=== PATIENT | female | born 1985 | race African-American/Black ===

== ENCOUNTER 2021-04-16 13:23 | Observation (INO) ==
[2021-04-16] MEDS ORDERED: LACTATED RINGERS 1,000 ML IV SCH (13:45)
[2021-04-16] MEDS: ONDANSETRON 4 MG/2 ML VIAL IV SCH ×2 (14:06→19:58)
[2021-04-16 14:16] LABS: Basophils % 0.4 % (0.0-0.8); Eosinophils % 0.1 % (0.00-10.9); Immature Granulocytes % 0.3 %; Immature Granulocytes Absolute 0.02 #; Lymphocytes # 1.4 10*3/uL (1.4-4.0); Lymphocytes % 21.3 % (21.3-54.2); Mean Corpuscular HGB Conc 31.3 GM/DL (32-36); Mean Corpuscular Volume 74.8 FL (87-102); Mean Platelet Volume 10.1 FL (9.6-12.0); Monocytes % 9.3 % (1.7-12.7); Neutrophils % 68.6 % (38.7-73.9); Platelet Count 418 T/CUMM (130-400); Red Blood Count 4.28 MC/CUMM (3.8-5.5); Red Cell Distribution Width 15.9 % (9.3-17.3); White Blood Count 6.7 T/CUMM (4-12)
[2021-04-16 14:37] LABS: Bilirubin,Total 0.9 MG/DL (0.20-1.00); Calcium 9.4 MG/DL (8.5-10.1); Potassium 3.1 MMOL/L (3.5-5.1); Total Protein 8.3 G/DL (6.4-8.2)
[2021-04-16] MEDS ORDERED: THIAMINE INJ 100 MG, FOLIC ACID INJ 1 MG, MULTIVITAMIN INJ 10 ML in SODIUM CHLORIDE 0.9... IV SCH (14:47)
[2021-04-16] MEDS ORDERED: POTASSIUM CHLORIDE 20 MEQ TABLET PO PRN (16:58)
[2021-04-16] MEDS ORDERED: ACETAMINOPHEN 325 MG TABLET PO PRN (16:58)
[2021-04-16 17:16] LABS: Bilirubin,Urine Small mg/dL (Negative); Blood, Urine Negative (Negative); Glucose,Urine (UA) 50 mg/dL (Negative); Ketones,Urine 20 mg/dL (Negative); Mucus,Urine Many /LPF (Occasional); Nitrite,Urine Negative (Negative); Protein,Urine 100 MG/DL; Urine Appearance CLOUDY (Clear); Urine Color Amber (Yellow); Urine Specific Gravity 1.028 (1.001-1.035)
[2021-04-17] MEDS: ONDANSETRON 4 MG/2 ML VIAL IV SCH ×3 (02:16→15:27)
[2021-04-17 06:20] LABS: Albumin 2.2 G/DL (3.4-5.0); Bilirubin,Total 0.7 MG/DL (0.20-1.00); Calcium 8.8 MG/DL (8.5-10.1); Osmolality,Calculated 271.7 MOS/KG (273-304); Total Protein 6.3 G/DL (6.4-8.2)
[2021-04-17] MEDS ORDERED: POTASSIUM CHLORIDE INJ 20 MEQ in LACTATED RINGERS 1,000 ML IV SCH (07:30)
[2021-04-17 13:42] VITALS: BP 98/54
[2021-04-17] MEDS ORDERED: THIAMINE INJ 100 MG, FOLIC ACID INJ 1 MG, MULTIVITAMIN INJ 10 ML in SODIUM CHLORIDE 0.9... IV SCH (14:00)
== END 2021-04-17 16:20 | disposition home or self-care (01) ==
LOC: N.OB 13:23 → INTOOBSV 13:58
PROVIDERS: ADMIT Obstetrics & Gynecology; ATTEND Obstetrics & Gynecology

== ENCOUNTER 2021-05-06 19:24 | Inpatient (IN) ==
[2021-05-06] MEDS ORDERED: PANTOPRAZOLE 40 MG VIAL IV STA (19:56)
[2021-05-06 20:37] LABS: Basophils % 0.3 % (0.0-0.8); Eosinophils # 0.1 10*3/uL (0.0-0.87); Hematocrit 28.6 VOL% (35.7-47.0); Hemoglobin 8.6 GM/DL (12.0-16.0); Immature Granulocytes % 0.7 %; Immature Granulocytes Absolute 0.05 #; Lymphocytes # 1.3 10*3/uL (1.4-4.0); Lymphocytes % 18.1 % (21.3-54.2); Mean Corpuscular HGB Conc 30.1 GM/DL (32-36); Mean Corpuscular Volume 78.1 FL (87-102); Mean Platelet Volume 11.4 FL (9.6-12.0); Monocytes % 6.3 % (1.7-12.7); Neutrophils % 73.6 % (38.7-73.9); Platelet Count 221 T/CUMM (130-400); Red Blood Count 3.66 MC/CUMM (3.8-5.5); Red Cell Distribution Width 17.1 % (9.3-17.3)
[2021-05-06 20:54] LABS: Albumin 2.7 G/DL (3.4-5.0); Bilirubin,Total 0.4 MG/DL (0.20-1.00); Calcium 9.1 MG/DL (8.5-10.1); Osmolality,Calculated 265.2 MOS/KG (273-304); Total Protein 7.8 G/DL (6.4-8.2)
[2021-05-06] MEDS ORDERED: SODIUM CHLORIDE 0.9% 1,000 ML IV STA (21:23)
[2021-05-06 21:27] LABS: Bilirubin,Urine Negative (Negative); Blood, Urine Negative (Negative); Glucose,Urine (UA) Negative (Negative); Ketones,Urine 20 mg/dL (Negative); Mucus,Urine Many /LPF (Occasional); Nitrite,Urine Negative (Negative); Protein,Urine 100 MG/DL; RBC,Urine 3 /HPF (0-4); Squamous Epithelial Cell,Urine Few /HPF (0-10); Urine Appearance Slightly Hazy (Clear); Urine Color Yellow (Yellow); Urine Specific Gravity 1.026 (1.001-1.035)
[2021-05-06] MEDS ORDERED: PIPERACILLIN/TAZOBACTAM 3,375 MG in SODIUM CHLORIDE 0.9% 100 ML IV STA (22:17)
[2021-05-06] MEDS ORDERED: ONDANSETRON 4 MG/2 ML VIAL IM STA (22:30)
[2021-05-06] MEDS ORDERED: ONDANSETRON 4 MG/2 ML VIAL ONE (22:31)
[2021-05-06] MEDS: SODIUM CHLORIDE 0.9% 1,000 ML IV SCH (22:47)
[2021-05-06] MEDS ORDERED: PROMETHAZINE 25 MG/1 ML VIAL IM PRN (23:57)
[2021-05-07] MEDS ORDERED: MORPHINE 2 MG/1 ML SYRINGE IV PRN (00:12)
[2021-05-07] MEDS: MORPHINE 2 MG/1 ML SYRINGE IV PRN ×3 (00:27→09:40)
[2021-05-07] MEDS: PIPERACILLIN/TAZOBACTAM 3,375 MG in SODIUM CHLORIDE 0.9% 100 ML IV SCH ×3 (06:36→21:04)
[2021-05-07 08:08] LABS: Basophils % 0.2 % (0.0-0.8); Hematocrit 26.5 VOL% (35.7-47.0); Hemoglobin 7.9 GM/DL (12.0-16.0); Immature Granulocytes % 0.3 %; Immature Granulocytes Absolute 0.03 #; Lymphocytes # 1.2 10*3/uL (1.4-4.0); Mean Corpuscular HGB Conc 29.8 GM/DL (32-36); Mean Corpuscular Volume 78.2 FL (87-102); Mean Platelet Volume 10.5 FL (9.6-12.0); Monocytes % 5.1 % (1.7-12.7); Neutrophils % 80.4 % (38.7-73.9); Platelet Count 354 T/CUMM (130-400); Red Blood Count 3.39 MC/CUMM (3.8-5.5); Red Cell Distribution Width 16.9 % (9.3-17.3); White Blood Count 8.9 T/CUMM (4-12)
[2021-05-07 08:50] LABS: Alanine Aminotransferase 18 U/L (13-56); Albumin 2.3 G/DL (3.4-5.0); Alkaline Phosphatase 87 U/L (45-117); Aspartate Amino Transferase 24 U/L (0-37); Bilirubin,Total < 0.39 MG/DL (0.20-1.00); Blood Urea Nitrogen 6 MG/DL (7-18); Calcium 8.7 MG/DL (8.5-10.1); Carbon Dioxide 21 MMOL/L (21-32); Estimated Glom Filtration Rate 154 ML/MIN; Glucose 87 MG/DL (74-106); Potassium 3.8 MMOL/L (3.5-5.1); Sodium 136 MMOL/L (136-145); Total Protein 6.7 G/DL (6.4-8.2)
[2021-05-07] MEDS: PANTOPRAZOLE 40 MG VIAL IV SCH (09:41)
[2021-05-07] MEDS: SODIUM CHLORIDE 0.9% 1,000 ML IV SCH ×2 (10:49)
[2021-05-07] MEDS: oxyCODONE/ACETAMINOPHEN 5-325 MG TABLET PO PRN ×2 (12:45→21:04)
[2021-05-07] MEDS: HYDROmorphone 2 MG/1 ML VIAL IV PRN (14:57)
[2021-05-08] MEDS: SODIUM CHLORIDE 0.9% 1,000 ML IV SCH ×4 (01:03→23:01)
[2021-05-08 06:35] LABS: Basophils % 0.5 % (0.0-0.8); Eosinophils # 0.1 10*3/uL (0.0-0.87); Eosinophils % 1.2 % (0.00-10.9); Hematocrit 25.2 VOL% (35.7-47.0); Hemoglobin 7.5 GM/DL (12.0-16.0); Immature Granulocytes % 0.5 %; Immature Granulocytes Absolute 0.04 #; Lymphocytes # 1.6 10*3/uL (1.4-4.0); Lymphocytes % 21.1 % (21.3-54.2); Mean Corpuscular HGB Conc 29.8 GM/DL (32-36); Mean Corpuscular Volume 78.5 FL (87-102); Mean Platelet Volume 10.5 FL (9.6-12.0); Monocytes % 7.8 % (1.7-12.7); Neutrophils % 68.9 % (38.7-73.9); Platelet Count 330 T/CUMM (130-400); Red Blood Count 3.21 MC/CUMM (3.8-5.5); Red Cell Distribution Width 16.9 % (9.3-17.3); White Blood Count 7.6 T/CUMM (4-12)
[2021-05-08 06:53] LABS: Alanine Aminotransferase 16 U/L (13-56); Albumin 2.1 G/DL (3.4-5.0); Alkaline Phosphatase 78 U/L (45-117); Aspartate Amino Transferase 15 U/L (0-37); Bilirubin,Total < 0.39 MG/DL (0.20-1.00); Blood Urea Nitrogen 7 MG/DL (7-18); Calcium 8.4 MG/DL (8.5-10.1); Carbon Dioxide 22 MMOL/L (21-32); Estimated Glom Filtration Rate 154 ML/MIN; Glucose 63 MG/DL (74-106); Potassium 3.4 MMOL/L (3.5-5.1); Sodium 136 MMOL/L (136-145); Total Protein 6.3 G/DL (6.4-8.2)
[2021-05-08] MEDS: PIPERACILLIN/TAZOBACTAM 3,375 MG in SODIUM CHLORIDE 0.9% 100 ML IV SCH ×3 (06:54→20:55)
[2021-05-08 06:59] LABS: Folate 4.99 NG/ML (5.38-24.0)
[2021-05-08 07:05] LABS: % Iron Saturation 16.2 % (18-50); Ferritin 5.2 ng/mL (8-252)
[2021-05-08] MEDS: PANTOPRAZOLE 40 MG VIAL IV SCH (08:28)
[2021-05-08] MEDS: oxyCODONE/ACETAMINOPHEN 5-325 MG TABLET PO PRN (08:31)
[2021-05-08] MEDS: CYANOCOBALAMIN 500 MCG TABLET PO SCH (14:21)
[2021-05-08] MEDS: FOLIC ACID 1 MG TABLET PO SCH ×2 (14:23→20:51)
[2021-05-08] MEDS: ONDANSETRON 4 MG/2 ML VIAL IV PRN (14:29)
[2021-05-08] MEDS: HYDROmorphone 2 MG/1 ML VIAL IV PRN (20:51)
[2021-05-09] MEDS: SODIUM CHLORIDE 0.9% 1,000 ML IV SCH ×3 (04:25→16:45)
[2021-05-09] MEDS: PIPERACILLIN/TAZOBACTAM 3,375 MG in SODIUM CHLORIDE 0.9% 100 ML IV SCH ×3 (05:40→22:05)
[2021-05-09 06:05] LABS: Basophils % 0.3 % (0.0-0.8); Eosinophils # 0.1 10*3/uL (0.0-0.87); Eosinophils % 1.4 % (0.00-10.9); Hematocrit 24.5 VOL% (35.7-47.0); Hemoglobin 7.3 GM/DL (12.0-16.0); Immature Granulocytes % 0.7 %; Immature Granulocytes Absolute 0.05 #; Lymphocytes # 1.3 10*3/uL (1.4-4.0); Lymphocytes % 18.4 % (21.3-54.2); Mean Corpuscular HGB Conc 29.8 GM/DL (32-36); Mean Corpuscular Volume 80.1 FL (87-102); Mean Platelet Volume 11.7 FL (9.6-12.0); Neutrophils % 69.2 % (38.7-73.9); Platelet Count 228 T/CUMM (130-400); Red Blood Count 3.06 MC/CUMM (3.8-5.5); Red Cell Distribution Width 17.2 % (9.3-17.3); White Blood Count 7.3 T/CUMM (4-12)
[2021-05-09 06:10] LABS: Alanine Aminotransferase 12 U/L (13-56); Albumin 1.9 G/DL (3.4-5.0); Alkaline Phosphatase 71 U/L (45-117); Aspartate Amino Transferase 12 U/L (0-37); Bilirubin,Total < 0.39 MG/DL (0.20-1.00); Blood Urea Nitrogen 5 MG/DL (7-18); Carbon Dioxide 20 MMOL/L (21-32); Estimated Glom Filtration Rate 154 ML/MIN; Glucose 66 MG/DL (74-106); Potassium 3.2 MMOL/L (3.5-5.1); Sodium 136 MMOL/L (136-145); Total Protein 5.8 G/DL (6.4-8.2)
[2021-05-09 06:37] LABS: Anisocytosis 1+; Platelet Estimate Normal
[2021-05-09] MEDS: IRON (CARBONYL)/VIT C/B12/FA TABLET PO SCH (09:26)
[2021-05-09] MEDS: PANTOPRAZOLE 40 MG VIAL IV SCH (09:26)
[2021-05-09] MEDS: FOLIC ACID 1 MG TABLET PO SCH ×2 (09:27→22:03)
[2021-05-09] MEDS: CYANOCOBALAMIN 500 MCG TABLET PO SCH (09:27)
[2021-05-09] MEDS: oxyCODONE/ACETAMINOPHEN 5-325 MG TABLET PO PRN (09:27)
[2021-05-09] MEDS ORDERED: TISSUE ADHESIVE 1 EACH APPLICATOR TOP ONE (11:34)
[2021-05-09] MEDS ORDERED: LIDOCAINE 2% 5 ML VIAL ONE (11:39)
[2021-05-09] MEDS ORDERED: propofoL 200 MG/20 ML VIAL IV ONE ×2 (11:39→12:34)
[2021-05-09] MEDS ORDERED: ROCURONIUM 50 MG/5 ML VIAL IV ONE (11:39)
[2021-05-09] MEDS ORDERED: ONDANSETRON 4 MG/2 ML VIAL ONE (11:39)
[2021-05-09] MEDS ORDERED: DESFLURANE 1 UNIT/15 MINUTE INH ONE ×2 (11:39→13:18)
[2021-05-09] MEDS ORDERED: DEXAMETHASONE 4 MG/1 ML VIAL ONE (11:39)
[2021-05-09] MEDS ORDERED: fentaNYL 100 MCG/2 ML VIAL ONE (11:40)
[2021-05-09] MEDS ORDERED: ACETAMINOPHEN INJ 1,000 MG/100 ML VIAL IV ONE (12:34)
[2021-05-09] MEDS ORDERED: ePHEDrine 50 MG/ML VIAL ONE (12:44)
[2021-05-09] MEDS ORDERED: LACTATED RINGERS 1,000 ML IV ONE (13:26)
[2021-05-09] MEDS ORDERED: SUGAMMADEX 200 MG/2 ML VIAL IV ONE (13:39)
[2021-05-09] MEDS ORDERED: MEPERIDINE 25 MG/1 ML VIAL IV ONE (14:07)
[2021-05-09] MEDS ORDERED: MEPERIDINE 25 MG/1 ML VIAL ONE (14:08)
[2021-05-09] MEDS: POTASSIUM CHLORIDE RIDER 10 MEQ/100 ML PREMIX IV PRN ×3 (16:11→19:08)
[2021-05-09] MEDS: ONDANSETRON 4 MG/2 ML VIAL IV PRN (22:03)
[2021-05-10] MEDS: SODIUM CHLORIDE 0.9% 1,000 ML IV SCH ×3 (04:29→22:32)
[2021-05-10] MEDS: oxyCODONE/ACETAMINOPHEN 5-325 MG TABLET PO PRN ×3 (04:29→16:51)
[2021-05-10] MEDS: PIPERACILLIN/TAZOBACTAM 3,375 MG in SODIUM CHLORIDE 0.9% 100 ML IV SCH ×3 (04:30→22:32)
[2021-05-10 05:26] LABS: Hematocrit 22.8 VOL% (35.7-47.0); Hemoglobin 6.9 GM/DL (12.0-16.0); Immature Granulocytes % 0.4 %; Immature Granulocytes Absolute 0.04 #; Lymphocytes # 0.9 10*3/uL (1.4-4.0); Lymphocytes % 9.3 % (21.3-54.2); Mean Corpuscular HGB Conc 30.3 GM/DL (32-36); Mean Corpuscular Volume 77.8 FL (87-102); Monocytes % 6.5 % (1.7-12.7); Neutrophils % 83.8 % (38.7-73.9); Platelet Count 297 T/CUMM (130-400); Red Blood Count 2.93 MC/CUMM (3.8-5.5); Red Cell Distribution Width 17.3 % (9.3-17.3); White Blood Count 9.1 T/CUMM (4-12)
[2021-05-10 05:48] LABS: Alanine Aminotransferase 21 U/L (13-56); Alkaline Phosphatase 76 U/L (45-117); Aspartate Amino Transferase 35 U/L (0-37); Bilirubin,Total < 0.39 MG/DL (0.20-1.00); Blood Urea Nitrogen 3 MG/DL (7-18); Calcium 8.9 MG/DL (8.5-10.1); Carbon Dioxide 22 MMOL/L (21-32); Estimated Glom Filtration Rate 154 ML/MIN; Glucose 86 MG/DL (74-106); Osmolality,Calculated 268.8 MOS/KG (273-304); Potassium 3.7 MMOL/L (3.5-5.1); Sodium 137 MMOL/L (136-145); Total Protein 6.2 G/DL (6.4-8.2)
[2021-05-10] MEDS: FOLIC ACID 1 MG TABLET PO SCH ×2 (09:54→22:30)
[2021-05-10] MEDS: CYANOCOBALAMIN 500 MCG TABLET PO SCH (09:54)
[2021-05-10] MEDS: IRON (CARBONYL)/VIT C/B12/FA TABLET PO SCH (09:54)
[2021-05-10] MEDS: PANTOPRAZOLE 40 MG TABLET PO SCH (09:55)
[2021-05-10] MEDS ORDERED: SODIUM CHLORIDE 0.9% 1,000 ML IV PRN (10:13)
[2021-05-10 14:42] LABS: Hematocrit 25.1 VOL% (35.7-47.0); Hemoglobin 7.6 GM/DL (12.0-16.0)
[2021-05-10] MEDS ORDERED: diphenhydrAMINE 50 MG/1 ML VIAL IV ONE (16:36)
[2021-05-10] MEDS ORDERED: FAMOTIDINE 20 MG/2 ML VIAL IV ONE (16:36)
[2021-05-10] MEDS ORDERED: methylPREDNISolone SOD SUC 40 MG/1 ML VIAL IV ONE (17:20)
[2021-05-11] MEDS: PANTOPRAZOLE 40 MG TABLET PO SCH (06:19)
[2021-05-11] MEDS: PIPERACILLIN/TAZOBACTAM 3,375 MG in SODIUM CHLORIDE 0.9% 100 ML IV SCH (06:20)
[2021-05-11] MEDS: CYANOCOBALAMIN 500 MCG TABLET PO SCH (09:04)
[2021-05-11] MEDS: IRON (CARBONYL)/VIT C/B12/FA TABLET PO SCH (09:04)
[2021-05-11] MEDS: FOLIC ACID 1 MG TABLET PO SCH (09:04)
[2021-05-11] MEDS: ONDANSETRON 4 MG/2 ML VIAL IV PRN (09:04)
[2021-05-11 09:50] VITALS: BP 121/72
[2021-05-11 11:04] LABS: Bilirubin,Urine Negative (Negative); Blood, Urine Negative (Negative); Glucose,Urine (UA) Negative (Negative); Ketones,Urine Negative (Negative); Mucus,Urine Occasional /LPF (Occasional); Nitrite,Urine Negative (Negative); Protein,Urine Negative; RBC,Urine 3 /HPF (0-4); Squamous Epithelial Cell,Urine Moderate /HPF (0-10); Urine Appearance Slightly Hazy (Clear); Urine Color Straw (Yellow); Urine Specific Gravity 1.002 (1.001-1.035); Urine Urobilinogen < 2.0 EU/DL (<2.0)
[2021-05-11] MEDS ORDERED: cefTRIAXone 1,000 MG VIAL IM ONE (11:22)
== END 2021-05-11 12:00 | disposition home or self-care (01) | DRG 547 ==
LOC: N.ED 19:24 → SUATTDRO 22:27 → N.EDINP 22:27 → N.5E 05-07 00:16
PROVIDERS: ADMIT Internal Medicine; ATTEND Emergency Medicine
PROC: LAPCHOL (2021-05-09 12:01)

== ENCOUNTER 2021-10-24 13:38 | Inpatient (IN) ==
[2021-10-24] MEDS ORDERED: CARBOPROST TROMETHAMINE 250 MCG/ML AMP IM PRN (13:49)
[2021-10-24] MEDS ORDERED: BUTORPHANOL 2 MG/ML VIAL IV PRN (13:49)
[2021-10-24] MEDS ORDERED: OXYTOCIN/LR 20 UNIT/1,000 ML BAG IV ONE (13:49)
[2021-10-24] MEDS ORDERED: METHYLERGONOVINE 0.2 MG/1 ML AMP IM PRN (13:49)
[2021-10-24] MEDS ORDERED: miSOPROStoL 200 MCG TABLET RECTAL PRN (13:49)
[2021-10-24] MEDS ORDERED: ONDANSETRON 4 MG/2 ML VIAL IV PRN (13:49)
[2021-10-24] MEDS ORDERED: TRANEXAMIC ACID 1,000 MG in SODIUM CHLORIDE 0.9% 100 ML IV PRN (13:49)
[2021-10-24] MEDS ORDERED: MEPERIDINE 50 MG/1 ML VIAL IV PRN (13:49)
[2021-10-24] MEDS ORDERED: OXYTOCIN/LR 20 UNIT/1,000 ML BAG IV SCH (14:00)
[2021-10-24 14:22] LABS: Basophils % 0.1 % (0.0-0.8); Eosinophils # 0.1 10*3/uL (0.0-0.87); Eosinophils % 1.4 % (0.00-10.9); Hematocrit 28.3 VOL% (35.7-47.0); Hemoglobin 8.6 GM/DL (12.0-16.0); Immature Granulocytes Absolute 0.07 #; Lymphocytes # 1.4 10*3/uL (1.4-4.0); Lymphocytes % 19.4 % (21.3-54.2); Mean Corpuscular HGB Conc 30.4 GM/DL (32-36); Mean Corpuscular Volume 80.6 FL (87-102); Mean Platelet Volume 13.2 FL (9.6-12.0); Monocytes # 0.5 10*3/uL (0.11-0.8); Monocytes % 7.6 % (1.7-12.7); Neutrophils % 70.5 % (38.7-73.9); Platelet Count 240 T/CUMM (130-400); Red Blood Count 3.51 MC/CUMM (3.8-5.5); Red Cell Distribution Width 17.4 % (9.3-17.3)
[2021-10-24 14:59] LABS: Eosinophils 2 % (0-10); Lymphocytes 17 % (20-55); Total Cells Counted 100
[2021-10-24 15:00] LABS: Anisocytosis 1+; Microcytosis 1+; Platelet Estimate Adequate
[2021-10-24] MEDS: LACTATED RINGERS 1,000 ML IV SCH ×2 (15:14→17:56)
[2021-10-25] MEDS ORDERED: LACTATED RINGERS 500 ML IV ONE (04:02)
[2021-10-25] MEDS ORDERED: CITRIC ACID/SODIUM CITRATE 30 ML UDCUP PO ONE (04:02)
[2021-10-25] MEDS ORDERED: LACTATED RINGERS 1,000 ML IV ONE (04:02)
[2021-10-25] MEDS ORDERED: FAMOTIDINE 20 MG/2 ML VIAL IV ONE (04:02)
[2021-10-25] MEDS ORDERED: diphenhydrAMINE 50 MG/1 ML VIAL IV PRN ×2 (04:05)
[2021-10-25] MEDS ORDERED: NALOXONE 0.4 MG/ML VIAL IV PRN (04:05)
[2021-10-25] MEDS ORDERED: ePHEDrine 50 MG/ML VIAL IV PRN (04:05)
[2021-10-25] MEDS ORDERED: hydrOXYzine HCL 25 MG/1 ML VIAL IM PRN (04:05)
[2021-10-25] MEDS ORDERED: ONDANSETRON 4 MG/2 ML VIAL IV ONE (04:05)
[2021-10-25] MEDS ORDERED: LACTATED RINGERS 250 ML IV PRN (04:05)
[2021-10-25] MEDS ORDERED: PROMETHAZINE 25 MG/1 ML VIAL IM ONE (04:05)
[2021-10-25] MEDS ORDERED: TRANEXAMIC ACID 1,000 MG/10 ML VIAL ONE (04:16)
[2021-10-25] MEDS ORDERED: miSOPROStoL 200 MCG TABLET ONE (04:16)
[2021-10-25] MEDS ORDERED: SODIUM CHLORIDE 0.9% 0 ML IV ONE (04:16)
[2021-10-25] MEDS ORDERED: OXYTOCIN/LR 20 UNIT/1,000 ML BAG IV ONE (04:16)
[2021-10-25] MEDS ORDERED: METHYLERGONOVINE 0.2 MG/1 ML AMP ONE (04:17)
[2021-10-25] MEDS ORDERED: CARBOPROST TROMETHAMINE 250 MCG/ML AMP IM ONE (04:17)
[2021-10-25] MEDS ORDERED: LACTATED RINGERS 1,000 ML IV SCH ×3 (04:30→05:30)
[2021-10-25] MEDS ORDERED: fentaNYL 2 MCG/ROPIV 0.2% EPID 100 ML EPIDURAL SCH (04:30)
[2021-10-25 05:06] LABS: Cord Arterial Blood HCO3 18.2 MMOL/L
[2021-10-25 05:08] LABS: Cord Venous Blood HCO3 20.4 MMOL/L; Cord Venous Blood PCO2 50.2 MMHG; Cord Venous Blood PO2 19.8
[2021-10-25] MEDS ORDERED: ACETAMINOPHEN 500 MG TABLET PO PRN (05:25)
[2021-10-25] MEDS ORDERED: MAGNESIUM HYDROXIDE SUSP 30 ML UDCUP PO PRN (05:25)
[2021-10-25] MEDS ORDERED: BISACODYL 10 MG SUPP RECTAL PRN (05:25)
[2021-10-25] MEDS ORDERED: IBUPROFEN 800 MG TABLET PO PRN (05:25)
[2021-10-25] MEDS ORDERED: BENZOCAINE 20%/MENTHOL 0.5% SPRAY 56 GM CAN TOP PRN (05:28)
[2021-10-25] MEDS ORDERED: ACETAMINOPHEN/CODEINE 300-30 MG TABLET PO PRN (05:29)
[2021-10-25 05:47] LABS: Basophils % 0.2 % (0.0-0.8); Hematocrit 25.4 VOL% (35.7-47.0); Hemoglobin 7.7 GM/DL (12.0-16.0); Immature Granulocytes % 1.3 %; Immature Granulocytes Absolute 0.11 #; Lymphocytes # 0.7 10*3/uL (1.4-4.0); Lymphocytes % 7.8 % (21.3-54.2); Mean Corpuscular HGB Conc 30.3 GM/DL (32-36); Mean Corpuscular Volume 81.2 FL (87-102); Mean Platelet Volume 12.8 FL (9.6-12.0); Monocytes # 0.5 10*3/uL (0.11-0.8); Monocytes % 5.3 % (1.7-12.7); Neutrophils % 85.4 % (38.7-73.9); Platelet Count 219 T/CUMM (130-400); Red Blood Count 3.13 MC/CUMM (3.8-5.5); Red Cell Distribution Width 17.4 % (9.3-17.3); White Blood Count 8.7 T/CUMM (4-12)
[2021-10-25] MEDS ORDERED: MULTIVITAMIN (PRENATAL) TABLET PO SCH (09:00)
[2021-10-25] MEDS: DOCUSATE SODIUM 100 MG CAPSULE PO SCH ×2 (09:20→19:36)
[2021-10-25] MEDS: IRON (CARBONYL)/VIT C/B12/FA TABLET PO SCH (09:20)
[2021-10-25] MEDS ORDERED: HYDROCORTISONE 2.5% RECTAL CREAM 30 GM TUBE TOP PRN (19:29)
[2021-10-25] MEDS ORDERED: WITCH HAZEL PADS 100/JAR TOP PRN (19:30)
[2021-10-26] MEDS: DOCUSATE SODIUM 100 MG CAPSULE PO SCH ×2 (02:50→08:03)
[2021-10-26 04:41] LABS: Basophils % 0.2 % (0.0-0.8); Eosinophils # 0.1 10*3/uL (0.0-0.87); Eosinophils % 0.7 % (0.00-10.9); Hematocrit 26.3 VOL% (35.7-47.0); Hemoglobin 7.9 GM/DL (12.0-16.0); Immature Granulocytes % 1.3 %; Immature Granulocytes Absolute 0.14 #; Lymphocytes # 2.5 10*3/uL (1.4-4.0); Lymphocytes % 22.1 % (21.3-54.2); Mean Corpuscular Volume 81.4 FL (87-102); Mean Platelet Volume 13.2 FL (9.6-12.0); Monocytes % 8.9 % (1.7-12.7); NRBC # 0.02 10*3/uL; Neutrophils % 66.8 % (38.7-73.9); Platelet Count 247 T/CUMM (130-400); Red Blood Count 3.23 MC/CUMM (3.8-5.5); Red Cell Distribution Width 17.6 % (9.3-17.3); White Blood Count 11.1 T/CUMM (4-12)
[2021-10-26 05:03] LABS: Platelet Estimate Normal
[2021-10-26] MEDS: IRON (CARBONYL)/VIT C/B12/FA TABLET PO SCH (08:03)
[2021-10-26 08:37] VITALS: BP 132/80
== END 2021-10-26 11:05 | disposition home or self-care (01) | DRG 560 ==
LOC: N.LD 13:38 → N.OB 10-25 07:41
PROVIDERS: ADMIT Obstetrics & Gynecology; ATTEND Obstetrics & Gynecology